=== PATIENT | male | born 1985 | race Caucasian/White ===

== ENCOUNTER 2016-12-18 19:11 | Emergency (ER) | payer MEDICAID ==
[~2016-12-18] VITALS: Ht 177.8 cm; Wt 63.6 kg
[~2016-12-18 19:11] MED LIST: AMOXICILLIN 50500 MG PO; CELEXA10 MG; CEPHALEXIN500 M1 PO; LORTAB 5/500 501 TAB PO; LOTRISONE 0.5 M1 CRE TP; METHADOSE40 MG PO; NAPROSYN500 MG PO; NO HOME MEDICATIONS; NORCO 325 MG-51 TAB PO; NORCO 325 MG-7.1 TAB PO; PEN-VEE K500 MG PO; PERCOCET 325 MG1 TA2 PO; ULTRAM 50MG TAB50 MG PO; XANAX .25M0.25 MG/TA; XANAX .25M0.25 MG/TA PO; XANAX 0.5MG0.5 MG; XANAX 0.5MG0.5 MG PO
[2016-12-18 19:26] VITALS: TEMP 98.7
[2016-12-18 20:34] LABS: BASO # 0.1 (0.0-0.2); BASO % 0.7 % (0.0-2.0); EOS # 0.2 (0.0-0.7); EOS % 2.8 % (0-4.0); GRAN # 3.5 (1.4-6.5); GRAN % 50.4 % (42.2-75.2); HEMATOCRIT 40.3 % (42.0-52.0); HEMOGLOBIN 13.6 g/dl (13.5-18.0); LYMPH # 2.5 (1.2-3.4); LYMPH % 35.9 % (20.0-51.0); MEAN CELL VOLUME 86 fl (80.0-100.0); MEAN CORPUSCULAR HEMOGLOBIN 29 pg (27.0-31.0); MEAN CORPUSCULAR HGB CONC 34 g/dl (33.0-37.0); MEAN PLATELET VOLUME 10.5 fl (7.4-10.4); MONO # 0.7 (0.1-0.6); MONO % 10.1 % (1.7-9.3); PLATELET COUNT 209 K/mm3 (130-400); RED BLOOD COUNT 4.71 M/mm3 (4.20-5.60); REDCELL DISTRIBUTION WIDTH-CV 12.8 % (11.5-14.5); WHITE BLOOD COUNT 6.9 K/mm3 (4.8-10.8)
[2016-12-18 20:48] LABS: AMPHETAMINE URINE NEGATIVE; BARBITURATES URINE NEGATIVE; BENZODIAZEPINES URINE POSITIVE; BUPRENORPHINE URINE POSITIVE; METHADONE URINE NEGATIVE; OPIATES URINE NEGATIVE; OXYCODONE URINE NEGATIVE; PHENCYCLIDINE URINE NEGATIVE; PROPOXYPHENE URINE NEGATIVE; THC CANNABINOIDS URINE POSITIVE
[2016-12-18 20:50] LABS: ADJUSTED CALCIUM 8.7 mg/dL (8.4-10.2); ALBUMIN 4.2 gm/dL (3.5-5.0); BILIRUBIN,TOTAL 0.6 mg/dL (0.0-1.0); C-REACTIVE PROTEIN 0.7 mg/dL (0.0-0.9); CALCIUM 8.9 mg/dL (8.4-10.2); CREATININE, serum 0.78 mg/dL (0.66-1.25); POTASSIUM 3.9 mmol/L (3.4-5.0); TOTAL PROTEIN 7.6 gm/dL (6.4-8.2)
[2016-12-18] MEDS ORDERED: ZOFRAN 4MG T4 MG/TAB PO (21:12)
[2016-12-18 21:23] VITALS: BP 111/86; PULSE 56
== END 2016-12-18 21:23 | disposition home or self-care (01) ==
LOC: COL.ER 19:11
PROVIDERS: Emergency Medicine
DX: F11.23 Opioid dependence with withdrawal (principal)
CPT/HCPCS: J2060; J2405; J7030

== ENCOUNTER 2018-06-09 19:32 | Emergency (ER) | payer MEDICAID | END 2018-06-09 20:56 | disposition home or self-care (01) | LOC: COL.ER 19:32 | DX: S00.83XA Contusion of other part of head, initial encounter (principal); S40.011A Contusion of right shoulder, initial encounter; V43.52XA Car driver injured in collision with other type car in traffic accident, initial encounter ==

== ENCOUNTER → 2019-02-11 | Outpatient (CLI) | payer MEDICAID ==
[~2019-02-11] MED LIST changes: +SUBOXONE 8 MG-21 TAB SL; +ZOFRAN 4MG T4 MG/TAB PO
== END ==
LOC: COL.RAD 13:15
DX: M25.562 Pain in left knee (principal)

== ENCOUNTER 2019-04-19 08:51 | Emergency (ER) | payer MEDICAID ==
[~2019-04-19] VITALS: Ht 177.8 cm; Wt 63.6 kg
[2019-04-19 09:04] VITALS: BP 112/65; TEMP 96.7
[2019-04-19] MEDS ORDERED: AMOXICILLIN 8751 TAB PO ×3 (09:18→10:10)
[2019-04-19 09:58] VITALS: PULSE 69
== END 2019-04-19 09:58 | disposition home or self-care (01) ==
LOC: COL.ER 08:51
DX: K02.9 Dental caries, unspecified (principal); K04.7 Periapical abscess without sinus
CPT/HCPCS: J1885

== ENCOUNTER 2019-12-28 22:14 | Emergency (ER) | payer MEDICAID ==
[~2019-12-28] VITALS: Ht 177.8 cm; Wt 61.4 kg
[~2019-12-28 22:14] MED LIST changes: +AMOXICILLIN 8751 TAB PO
[2019-12-28 22:15] VITALS: TEMP 97.3
[2019-12-29] MEDS ORDERED: NARCAN4 MG NS (01:01)
[2019-12-29 01:25] VITALS: BP 146/81; PULSE 80
== END 2019-12-29 01:25 | disposition home or self-care (01) ==
LOC: COL.ER 22:14
DX: F19.10 Other psychoactive substance abuse, uncomplicated (principal); F17.210 Nicotine dependence, cigarettes, uncomplicated

== ENCOUNTER 2020-10-18 15:24 | Emergency (ER) | payer MEDICAID ==
[~2020-10-18] VITALS: Ht 177.8 cm; Wt 59.1 kg
[~2020-10-18 15:24] MED LIST changes: +NARCAN4 MG NS
[2020-10-18 15:37] VITALS: TEMP 16
[2020-10-18] MEDS ORDERED: CLEOCIN HCL300 MG PO (15:43)
[2020-10-18 16:00] VITALS: BP 118/72; PULSE 71
== END 2020-10-18 16:12 | disposition home or self-care (01) ==
LOC: COL.ER 15:24
DX: K04.7 Periapical abscess without sinus (principal); K02.9 Dental caries, unspecified; F17.210 Nicotine dependence, cigarettes, uncomplicated

== ENCOUNTER 2020-11-26 14:57 | Emergency (ER) | payer MEDICAID ==
[~2020-11-26] VITALS: Ht 177.8 cm; Wt 59.1 kg
[~2020-11-26 14:57] MED LIST changes: +CLEOCIN HCL300 MG PO
[2020-11-26 17:30] VITALS: BP 118/64; PULSE 88; TEMP 98.3
== END 2020-11-26 17:30 | disposition home or self-care (01) ==
LOC: COL.ER 14:57
DX: S62.512A Displaced fracture of proximal phalanx of left thumb, initial encounter for closed fracture (principal); F17.200 Nicotine dependence, unspecified, uncomplicated; W23.1XXA Caught, crushed, jammed, or pinched between stationary objects, initial encounter; Y93.55 Activity, bike riding

== ENCOUNTER 2020-12-05 15:08 | Emergency (ER) | payer MEDICAID ==
[~2020-12-05] VITALS: Ht 177.8 cm; Wt 63.6 kg
[2020-12-05 17:29] VITALS: BP 122/76; PULSE 72; TEMP 98
== END 2020-12-05 17:13 | disposition home or self-care (01) ==
LOC: COL.ER 15:08
DX: F41.9 Anxiety disorder, unspecified (principal)

== ENCOUNTER 2020-12-28 02:12 | Emergency (ER) | payer MEDICAID ==
[~2020-12-28] VITALS: Ht 177.8 cm; Wt 61.4 kg
[2020-12-28 02:23] VITALS: TEMP 98.7
[2020-12-28 02:38] LABS: BASO % 0.3 % (0.0-2.0); EOS # 0.2 (0.0-0.7); EOS % 1.9 % (0-4.0); GRAN # 8.1 (1.4-6.5); GRAN % 62.5 % (42.2-75.2); HEMATOCRIT 43.3 % (42.0-52.0); HEMOGLOBIN 14.8 g/dl (13.5-18.0); LYMPH # 3.5 (1.2-3.4); LYMPH % 26.9 % (20.0-51.0); MEAN CELL VOLUME 86 fl (80.0-100.0); MEAN CORPUSCULAR HEMOGLOBIN 29 pg (27.0-31.0); MEAN CORPUSCULAR HGB CONC 34 g/dl (33.0-37.0); MEAN PLATELET VOLUME 10.2 fl (7.4-10.4); PLATELET COUNT 331 K/mm3 (130-400); RED BLOOD COUNT 5.03 M/mm3 (4.20-5.60); REDCELL DISTRIBUTION WIDTH-CV 12.9 % (11.5-14.5)
[2020-12-28 02:50] LABS: ALANINE AMINOTRANSFERASE 14 U/L (4-49); ALBUMIN 4.5 gm/dL (3.5-5.0); ALKALINE PHOSPHATASE 57 U/L (50-136); ANION GAP 9 mmol/L (7-16); AST,SGOT 20 U/L (15-37); BILIRUBIN,TOTAL 0.5 mg/dL (0.0-1.0); BLOOD UREA NITROGEN 12 mg/dL (9-20); CALCIUM 9.2 mg/dL (8.4-10.2); CARBON DIOXIDE 30 mmol/L (22-30); CHLORIDE 102 mmol/L (98-107); CREATININE, serum 0.78 (0.66-1.25); GLUCOSE 93 mg/dL (74-106); POTASSIUM 3.9 mmol/L (3.4-5.0); SODIUM 142 mmol/L (137-145); TOTAL PROTEIN 8.4 gm/dL (6.4-8.2)
[2020-12-28 03:02] LABS: TROPONIN-I < 0.012 ng/mL (0.000-0.035)
[2020-12-28 03:40] VITALS: BP 140/78; PULSE 90
== END 2020-12-28 03:40 | disposition home or self-care (01) ==
LOC: COL.ER 02:12
PROVIDERS: Emergency Medicine
DX: F41.9 Anxiety disorder, unspecified (principal); F17.210 Nicotine dependence, cigarettes, uncomplicated
CPT/HCPCS: J2060; J7030

== ENCOUNTER 2023-05-31 18:43 | Emergency (ER) | payer MEDICAID ==
[~2023-05-31] VITALS: Ht 177.8 cm; Wt 65.9 kg
[2023-05-31 18:51] VITALS: TEMP 97.9
[2023-05-31] MEDS ORDERED: ULTRAM 50MG TAB50 MG PO (20:19)
[2023-05-31] MEDS ORDERED: Home traMADol 50 MG #2 TAB/PACK PO ONE (20:30)
[2023-05-31 20:44] VITALS: BP 135/62; PULSE 75
== END 2023-05-31 20:44 | disposition home or self-care (01) ==
LOC: COL.ER 18:43
DX: S62.014A Nondisplaced fracture of distal pole of navicular [scaphoid] bone of right wrist, initial encounter for closed fracture (principal); S52.121A Displaced fracture of head of right radius, initial encounter for closed fracture; R07.81 Pleurodynia; Z87.891 Personal history of nicotine dependence; Z23 Encounter for immunization; V86.96XA Unspecified occupant of dirt bike or motor/cross bike injured in nontraffic accident, initial encounter; Y92.410 Unspecified street and highway as the place of occurrence of the external cause